=== PATIENT | female | born 1960 | race Caucasian/White ===

== ENCOUNTER 2017-06-20 15:21 | Observation (INO) | payer MEDICARE, OTHER ==
[~2017-06-20 15:21] MED LIST: ALBU0.08 NEB; ALBUAER3 INH; AMBI10TA PO; FLUT1SPR5 EACH NARE; GABA800T PO; MONT10TA2 PO; OMEP40CA2 PO; TRAM50TA PO; XANA1TAB2 PO
[2017-06-20 19:32] VITALS: BP 111/60; PULSE 63; RESP 16; TEMP 97.7; O2SAT 98
[2017-06-20] MEDS ORDERED: ONDANSETRON HCL 4 MG/2 ML VIAL IV PUSH PRN (21:15)
[2017-06-20] MEDS ORDERED: ACETAMINOPHEN 500 MG CPLT PO PRN (21:15)
[2017-06-20] MEDS ORDERED: SODIUM CHLORIDE 0.9% FLUSH 10 ML FLUSH IV FLUSH PRN (21:15)
[2017-06-20] MEDS ORDERED: NITROGLYCERIN 0.4 MG SL 25 TABS/BTL SL PRN (21:15)
[2017-06-21] VITALS (7 sets, daily range): BP systolic 107–120; BP diastolic 60–70; PULSE 59–99; RESP 16–18; TEMP 97.7–99.3; O2SAT 97–100
[2017-06-21] MEDS ORDERED: MORPHINE SULFATE 4 MG/ML INJ IV ONE (01:00)
[2017-06-21] MEDS ORDERED: ALPRAZolam 1 MG TAB PO PRN (08:45)
[2017-06-21] MEDS ORDERED: traMADol HCL 50 MG TAB PO PRN (08:45)
--- NOTE | 2017-06-21 08:51 | HHI.HP ---
HPI Primary Care Physician Non-Staff Chief Complaint Chest pain History of Present Illness This is a 56-year-old female that presents to the ED in [place] for evaluation of a chest pressure that began 2 days ago and has been constant as well as a right upper back pain is been there constantly for 4 days. Movements seem to worsen her symptoms. She has felt little short of breath. Denies nausea. Denies diaphoresis. She has not had symptoms like this before. She states she has set up with a emissions technician Dr. Mishra and is to have a Holter monitor. States she has not had a stress test yet. Currently denies chest or arm discomfort or back discomfort. Denies recent illness. Denies fevers or chills. Review of Systems General: Patient denies fevers, chills, and recent travel. HEENT: Patient denies headache, sore throat, difficulty swallowing. Cardiovascular: Has the chest discomfort as mentioned above. Denies sensation of heart beating rapidly or irregularly. No syncope. Denies diaphoresis. Respiratory: Denies shortness of breath or inspirational chest discomfort. Denies coughing wheezing or hemoptysis. GI: Some mild nausea. Patient denies vomiting, diarrhea, abdominal pain, bloody stools. Musculoskeletal: Right upper back pain. Worsened with movement. Denies trauma. Patient denies joint pain or edema. Denies calf pain or edema. Neurovascular: Patient denies numbness, tingling, weakness in extremities. Denies headache. Endocrine: Denies polyuria and polydipsia. Hematologic: Denies easy bruising. Skin: Denies rash or itching. Past Family Social History Allergies: Coded Allergies: Penicillins (Verified Allergy, Severe, Anaphylaxis, 06/20/17) aspirin (Verified Allergy, Severe, Anaphylaxis, 06/20/17) ibuprofen (Verified Allergy, Severe, Anaphylaxis, 06/20/17) ketorolac (Verified Allergy, Severe, Anaphylaxis, 06/20/17) nalbuphine (Verified Allergy, Severe, Anaphylaxis, 06/20/17) Past Medical History Asthma, diverticulitis, fibromyalgia, tobacco abuse. Past Surgical History Colon resection secondary to diverticulitis. 2. Hysterectomy. Reported Medications Reported Meds & Active Scripts Active Tramadol (Tramadol HCl) 50 Mg Tab 50 Mg PO Q6H PRN Omeprazole 40 Mg Cap 40 Mg PO BID 30 Days Reported Singulair (Montelukast Sodium) 10 Mg Tab 10 Mg PO HS Flonase Nasal Elba (Fluticasone Nasal [place]ba) 50 Mcg/Act [place]ba 50 Mcg EACH NARE BID Proair Hfa 8.5 GM Inh (Albuterol Sulfate) 90 Mcg/Act Aer 2 Puff INH BID 108 mcg/actuation Ambien (Zolpidem Tartrate) 10 Mg Tab 10 Mg PO HS PRN Xanax (Alprazolam) 1 Mg Tab 1 Mg PO BID PRN Gabapentin 800 Mg Tab 800 Mg PO BID Active Ordered Medications Current Medications Medications (Trade) Dose Ordered Sig/Aleena Route Start Time Stop Time Status Last Admin (NS Flush) 2 ml BID IV FLUSH 06/21/17 09:00 06/21/17 08:36 (NS Flush) 2 ml UNSCH PRN IV FLUSH 06/20/17 21:15 (Tylenol) 500 mg Q4H PRN PO 06/20/17 21:15 06/21/17 08:36 (Zofran Inj) 4 mg Q6H PRN IV PUSH 06/20/17 21:15 (Nitrostat Sl) 0.4 mg Q5M PRN SL 06/20/17 21:15 Family History Denies family history of CAD. Social History Smokes an average of 3 cigarettes per day and was done in the morning for the last 30 years. Denies alcohol or illicit drug use. Physical Exam Vital Signs Vital Signs Date Time Temp Pulse Resp B/P (MAP) Pulse Ox O2 Delivery O2 Flow Rate FiO2 06/21/17 08:06 98.0 65 18 107/69 (82) 99 06/21/17 03:56 99.3 99 17 110/60 (77) 97 06/21/17 00:23 97.9 59 16 119/63 (81) 98 06/20/17 19:32 97.7 63 16 111/60 (77) 98 Physical Exam GENERAL: This is a well-nourished, well-developed patient, in no apparent distress. Patient speaks in clear complete sentences. Patient is pleasant. HEENT: Head is atraumatic and normocephalic. Neck is supple without lymphadenopathy and trachea is midline. No JVD or carotid bruits. CARDIOVASCULAR: Regular rate and rhythm without murmurs, gallops, or rubs. RESPIRATORY: Clear to auscultation. Breath sounds equal bilaterally. No wheezes , rales, or rhonchi. Chest wall is nontender. No use of accessory muscles. GASTROINTESTINAL: Abdomen is nontender, nondistended. Abdomen soft. No obvious pulsatile mass or bruit. No CVA tenderness. Strong femoral pulses bilaterally. Normal bowel sounds in all quadrants. MUSCULOSKELETAL: Patient is moving upper and lower extremities freely. No calf tenderness or edema, no Homans sign. Strong pulses in upper and lower extremities. NEUROLOGICAL: Patient is alert and oriented. Cranial nerves 2-12 are grossly intact. No focal deficits and speech is clear. SKIN: No rash and turgor is normal. Imaging Chest x-ray reveals nothing acute. Course EKGs are sinus rhythm without significant ST segment depressions or elevations. Caprini VTE Risk Assessment Caprini VTE Risk Assessment: No/Low Risk (score <= 1) Caprini Risk Assessment Model Point Value = 1 Point Value = 2 Point Value = 3 Point Value = 5 Age 41-60 Minor surgery BMI > 25 kg/m2 Swollen legs Varicose veins or History of unexplained or recurrent spontaneous Oral contraceptives or hormone replacement Sepsis (< 1 month) Serious lung disease, including pneumonia (< 1 month) Abnormal pulmonary function Acute myocardial infarction Congestive heart failure (< 1 month) History of inflammatory bowel disease Medical patient at bed rest Age 61-74 Arthroscopic surgery Major open surgery (> 45 min) Laparoscopic surgery (> 45 min) Malignancy Confined to bed (> 72 hours) Immobilizing plaster cast Central venous access Age >= 75 History of VTE Family history of VTE Factor V Leiden Prothrombin [id number] Lupus anticoagulant Anticardiolipin antibodies Elevated serum homocysteine Heparin-induced thrombocytopenia Other congenital or acquired thrombophilia Stroke (< 1 month) Elective arthroplasty Hip, pelvis, or leg fracture Acute spinal cord injury (< 1 month) Prophylaxis Regimen Total Risk Factor Score Risk Level Prophylaxis Regimen 0-1 Low Early ambulation 2 Moderate Order ONE of the following: *Sequential Compression Device (SCD) *Heparin 5000 units SQ BID 3-4 Higher Order ONE of the following medications: *Heparin 5000 units SQ TID *Enoxaparin/Lovenox 40 mg SQ daily (WT < 150 kg, CrCl > 30 mL/min) *Enoxaparin/Lovenox 30 mg SQ daily (WT < 150 kg, CrCl > 10-29 mL/min) *Enoxaparin/Lovenox 30 mg SQ BID (WT < 150 kg, CrCl > 30 mL/min) AND/OR *Sequential Compression Device (SCD) 5 or more Highest Order ONE of the following medications: *Heparin 5000 units SQ TID (Preferred with Epidurals) *Enoxaparin/Lovenox 40 mg SQ daily (WT < 150 kg, CrCl > 30 mL/min) *Enoxaparin/Lovenox 30 mg SQ daily (WT < 150 kg, CrCl > 10-29 mL/min) *Enoxaparin/Lovenox 30 mg SQ BID (WT < 150 kg, CrCl > 30 mL/min) AND *Sequential Compression Device (SCD) Assessment and Plan Assessment and Plan * Chest pain: Patient has had serial cardiac enzymes and EKGs for ruling out purposes. She has been seen by Dr. Jm Parrish of cardiology in the chest pain center and will undergo a Lexiscan. She will be discharged home if her stress test is nonischemic with instructions to follow-up with PCP and her emissions technician. Return to ED for interval issues. * Tobacco abuse: Patient has been counseled on the importance of smoking cessation. Patient is stable at this time. She is agreeable to this plan. Brandon Miller Jun 21, 2017 08:51
[2017-06-21] MEDS ORDERED: RESP: ALBUTEROL 2.5 MG/IPRATROPIUM 0.5 MG NEB (PRN) INH (09:00)
[2017-06-21] MEDS ORDERED: GABAPENTIN 400 MG CAP PO SCH (09:00)
[2017-06-21] MEDS ORDERED: SODIUM CHLORIDE 0.9% FLUSH 10 ML FLUSH IV FLUSH SCH (09:00)
[2017-06-21] MEDS ORDERED: PANTOPRAZOLE SOD 40 MG DELAYED RELEASE TAB PO SCH (09:00)
[2017-06-21] MEDS ORDERED: REGADENOSON INJ 0.4 MG/5 ML SYR ONE (10:54)
--- NOTE | 2017-06-21 11:47 | EKG ---
Date Performed: 06/20/2017 Time Performed: 20:16:10 PTAGE: 56 years EKG: Sinus rhythm NORMAL ECG NO PREVIOUS TRACING DOCTOR: Jm Parrish Interpretating Date/Time 06/21/2017 11:45:11
--- NOTE | 2017-06-21 11:51 | TR ---
Date Performed: 06/21/2017 Time Performed: 11:02:16 DOCTOR: Jm Parrish DRUG LIST: CLINICAL HISTORY: CHEST PAIN REASON FOR TEST: CHEST PAIN REASON FOR ENDING: OBSERVATION: CONCLUSION: COMMENTS: Lexiscan stress test was performed under standard four minute protocol. Radionuclide was injected one minute prior to ending the test. No electrocardiographic abormalities were present t o suggest ischemia. Nuclear imaging and interpretation are pending.
--- NOTE | 2017-06-21 12:59 | RADRPT ---
EXAM DATE/TIME: 06/21/2017 10:38 [facility] COMPARISON: No previous studies available for comparison. INDICATIONS : Substernal chest pain with nausea and dyspnea. Angina. DOSE: 25.4 mCi Tc99m Myoview at stress. 8.5 mCi Tc99m Myoview at rest. 0.4 mg Lexiscan STRESS SYMPTOMS: Nausea and headache. EJECTION FRACTION: > 70% MEDICAL HISTORY : Gastroesophageal reflux disease. Asthma. SURGICAL HISTORY : Hysterectomy. Appendectomy. Colon resection. ENCOUNTER: Initial ACUITY: 1 day PAIN SCALE: 6/10 LOCATION: Substernal chest TECHNIQUE: The patient underwent pharmacologic stress with infusion of prescribed dose. Continuous ECG tracing was monitored during stress. Gated SPECT imaging was performed after stress and conventional SPECT i maging was performed at rest. The examination was performed on a SPECT/CT scanner, both attenuation and non-corrected datasets were reviewed. FINDINGS: DISTRIBUTION: The maximum perfused segment at stress is in the anteroseptal wall. PERFUSION STUDY: The pattern of perfusion at stress is within normal limits. GATED STUDY: There is intact wall motion and thickening without hypokinetic or dyskinetic segments. CONCLUSION: Normal examination. RISK CATEGORY: Low (<1% Annual Mortality Rate) Phillip Reed MD on June 21, 2017 at 12:55 Board Certified Radiologist. This report was verified electronically.
--- NOTE | 2017-06-21 13:19 | HHI.DCPOC ---
Discharge Care Plan Diagnosis: (1) Chest pain (2) Tobacco abuse Goals to Promote Your Health * To prevent worsening of your condition and complications * To maintain your health at the optimal level Directions to Meet Your Goals Take your medications as prescribed Follow your dietary instruction Follow activity as directed Keep your appointments as scheduled Take your immunizations and boosters as scheduled If your symptoms worsen call your PCP, if no PCP go to Urgent Care Center or Emergency Room Smoking is Dangerous to Your Health. Avoid second hand smoke Call the 24-hour hour crisis hotline for domestic abuse at Brandon Miller Jun 21, 2017 13:19
[2017-06-21] MEDS ORDERED: ZOLPIDEM TARTRATE 10 MG TAB PO PRN (21:00)
== END 2017-06-21 17:00 | disposition home or self-care (01) ==
LOC: NEDDLT 15:21 → NEPFCDU 18:25
PROVIDERS: ADMIT Internal Medicine Interventional Cardiology; ATTEND Internal Medicine Interventional Cardiology
DX: R07.89 Other chest pain (principal); F17.210 Nicotine dependence, cigarettes, uncomplicated; M54.6 Pain in thoracic spine; R06.02 Shortness of breath; M79.7 Fibromyalgia; R11.0 Nausea; R06.00 Dyspnea, unspecified; K21.9 Gastro-esophageal reflux disease without esophagitis; J45.909 Unspecified asthma, uncomplicated
CPT/HCPCS: 71045; 78452; 80053; 82550; 84484; 85025; 85379; 85610; 85730; 93005; 93017; 96372; 96374; 96375; 99285; A9502; G0378; J2270; J2360; J2405; J2785